=== PATIENT | male | born 1995 | race Two or more races ===

== ENCOUNTER 2020-04-23 14:09 | Emergency (ER) | payer OTHER ==
[~2020-04-23] VITALS: Ht 177.8 cm; Wt 76.7 kg
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
--- NOTE | 2020-04-23 15:14 | NUR ---
REPORT TO JEANINE PHELPS
[2020-04-23 16:05] LABS: ALBUMIN 3.9 g/dL (3.4-5.0); ANION GAP 6 mmol/L (5-15); CALCIUM 8.8 mg/dL (8.5-10.1); CHLORIDE 113 mmol/L (98-107)
[2020-04-23 16:08] LABS: TROPONIN I < 0.015 ng/mL (0.000-0.045)
[2020-04-23 16:17] LABS: MEAN CORPUSCULAR HEMOGLOBIN 29.8 pg (27.5-34.5); MEAN CORPUSCULAR HGB CONC 34.3 g/dL (33.2-36.2); PLATELET COUNT 213 x10^3/uL (130-400); RED BLOOD COUNT 5.05 x10^6/uL (4.38-5.82); RED CELL DISTRIBUTION WIDTH 13.7 % (9.4-14.8)
[2020-04-23 16:51] LABS: MD YES
[2020-04-23 16:55] LABS: EOS#(MANUAL) 1.19 x10^3/uL (0.0-0.4); EOS% (MANUAL) 12 % (1-7); LYMPH#(MANUAL) 3.27 x10^3/uL (1-3.4); LYMPHS% (MANUAL) 33 % (22-44); MONOS% (MANUAL) 2 % (2-9); SEG#(MANUAL) 5.25 x10^3/uL (1.8-6.8); SEGS% (MANUAL) 53 % (42-75)
[2020-04-23 16:57] LABS: <PLATELET ESTIMATE> ADEQUATE; <PLT MORPHOLOGY> NORMAL PLT MORPH
[2020-04-23 17:21] VITALS: BP 110/67
== END 2020-04-23 17:24 | disposition home or self-care (01) ==
LOC: ED 15:37
DX: R05 Cough (principal); R06.02 Shortness of breath; R07.2 Precordial pain; I44.4 Left anterior fascicular block; M54.9 Dorsalgia, unspecified; F17.290 Nicotine dependence, other tobacco product, uncomplicated
CPT/HCPCS: 36415; 71045; 80048; 82040; 84484; 85025; 85379; 93005; 99285

== ENCOUNTER 2020-07-16 12:20 | Emergency (ER) | payer SELFPAY ==
[~2020-07-16] VITALS: Ht 177.8 cm; Wt 77.0 kg
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
[2020-07-16] MEDS ORDERED: SODIUM CHLORIDE FLUSH 10ML SYR IVF ONE (13:00)
[2020-07-16] MEDS ORDERED: MORPHINE SULFATE 4 MG/ML, 1ML IVPush PRN (13:00)
[2020-07-16] MEDS ORDERED: ONDANSETRON 2MG/ML, 2ML IVPush ONE (13:00)
[2020-07-16] MEDS ORDERED: ONDANSETRON 2MG/ML, 2ML ONE (13:02)
[2020-07-16] MEDS ORDERED: MORPHINE SULFATE 4 MG/ML, 1ML ONE (13:03)
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
--- NOTE | 2020-07-16 13:10 | NUR ---
PT IN CT
--- NOTE | 2020-07-16 13:34 | NUR ---
PT RETURNED FROM CT. TASK RN INSERTED IV AND MEDICATED PT.
--- NOTE | 2020-07-16 13:46 | NUR ---
DEYA IS AT THE BEDSIDE FOR RECHECK
[2020-07-16 14:26] VITALS: BP 135/97
--- NOTE | 2020-07-16 14:26 | NUR ---
Patient given discharge instructions and they have confirmed that they understand the instructions. Patient ambulatory with steady gait.
== END 2020-07-16 14:54 | disposition home or self-care (01) ==
LOC: ED 12:52
DX: S06.0X1A Concussion with loss of consciousness of 30 minutes or less, initial encounter (principal); S16.1XXA Strain of muscle, fascia and tendon at neck level, initial encounter; Y04.8XXA Assault by other bodily force, initial encounter; Y93.89 Activity, other specified; Y92.009 Unspecified place in unspecified non-institutional (private) residence as the place of occurrence of the external cause; Y99.8 Other external cause status
CPT/HCPCS: 70450; 70486; 72125; 96374; 96375; 99285; J2270; J2405